=== PATIENT | female | born 1990 | race African-American/Black ===

== ENCOUNTER 2017-03-30 23:46 | Inpatient (IN) | payer OTHER ==
[2017-03-31 00:16] VITALS: BMI 32.2
[2017-03-31] MEDS ORDERED: Lactated Ringer's 1,000 ML IV SCH ×2 (01:00→02:30)
[2017-03-31 01:21] LABS: Bilirubin Negative (Negative); Blood, Urine Negative (Negative); Glucose, Urine (Dipstick) Negative (Negative); Ketone, Urine Negative (Negative); Nitrite Negative (Negative); Protein, Urine (Dipstick) Negative (Neg-Trace); Urobilinogen 0.2 mg/dL (0.2-1.0)
[2017-03-31 01:29] LABS: Amphetamine Not Detected (NotDetected); Methadone Not Detected (NotDetected); Methamphetamine Not Detected (NotDetected)
[2017-03-31] MEDS ORDERED: Acetaminophen 500 MG TAB PO PRN (02:24)
[2017-03-31] MEDS ORDERED: Ondansetron HCl/PF 4 MG/2 ML Vial IVP PRN ×3 (02:24→19:56)
[2017-03-31] MEDS ORDERED: Promethazine HCl 25 MG/ML VIAL IM PRN ×2 (02:24→19:56)
[2017-03-31] MEDS ORDERED: Dinoprostone 10 MG Suppository VAG SCH (02:30)
[2017-03-31 02:55] LABS: Hematocrit 37.3 % (36.0-47.0); Mean Platelet Volume 9.7 fL (7.4-10.4); Red Blood Cell (RBC) Count 3.78 mill/uL (4.20-5.40); White Blood Cell (WBC) Count 8.7 thou/uL (4.8-10.8)
--- NOTE | 2017-03-31 04:19 | PDOC.LDHP ---
Labor and Delivery H&P Chief complaint: contractions, abdominal pain HPI: Pt has been having eloisa canela contractions for a few weeks. Says earlier this evening around 8 or 9 started having more painful contractions and more regular. Saying she couldn't move her legs and cramping. Denies any loss of fluid like water breaking or bleeding. Feels baby move and feeling contractions , doesn't know how many minutes apart. Says she has been peeing alot and reports always feeling a little wet below. Denies any discharge, odor change or pain with urination. 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 Pt states she doesn't recall ever having herpes or being told. She states shes never had lesions. Never had itching or burning. They were suppose to test her at the sn[facility] but have not yet. Current gestational age (weeks): 38 (4 days) Due date: 04/10/17 Dating criteria: last menstrual period, first trimester ultrasound Grav: 1 Para: 0 Current complications: oligohydramnios Past Medical History: PSH: Facial Surgery PMH: None Current medications: pre- vitamins, other (acyclovir, tylenol) Previous surgical history: other (facial surgery) Allergies/Adverse Reactions: Allergies Allergy/AdvReac Type Severity Reaction Status Date / Time peanut Allergy Intermediate Swollen Verified 03/31/17 00:06 Lips Social history: tobacco use (before ), drug use (PCP early in ) - Physical Exam Vital signs reviewed and normal: yes General: NAD Heart: RRR Lungs: nonlabored breathing Abdomen: gravid Extremeties: no edema FHT: category 2, variable decelerations, variability present - Vaginal Exam cm dilated: 1 Effacement: 50% Station: -3 - OB Labs Blood type: AB RH: positive HIV: negative RPR: negative HEPSAg: negative 1 hour GCT: negative GBS: negative - Assessment L&D Assessment: medically indicated induction -Contractions 1 or 2 seen on FHT, not regular FHT baseline 150-160 with variable and moderate variability BPP 8/8, VIANNEY 3.6. Will induce due to oligohydramnios. - Plan Plan: admit to L&D, cervical ripening -: -will check U/A -Will check VP3 -Urine Drug Sreen due to previous drug use -LR bolus x2 and then maintenance rate @ 120 mls/h Will place cervedil for cervical ripening. -Pt would like epidural Due to questionable HSV status will check HSV antibodies and continue acyclovir for the time being.
[2017-03-31] MEDS: Lactated Ringer's 1,000 ML IV SCH ×3 (08:49→18:31)
[2017-03-31] MEDS: Acyclovir 400 mg Tablet PO SCH ×2 (08:50→15:42)
[2017-03-31] MEDS: metroNIDAZOLE 500 MG TAB PO SCH ×2 (08:53→22:06)
[2017-03-31] MEDS ORDERED: Fentanyl 4 mcg/Marc 0.1% Cadd 100 ML ONE (09:41)
[2017-03-31] MEDS ORDERED: Eucerin (Mineral Oil/Petrolatum,White) 30 gm Jar TOP PRN ×2 (10:29→19:56)
[2017-03-31] MEDS ORDERED: Acetaminophen 325 MG TAB PO PRN (10:29)
[2017-03-31] MEDS ORDERED: ePHEDrine/0.9% NaCl/PF SYRINGE 50 mg/10 ml SLOW IVP PRN (10:29)
[2017-03-31] MEDS ORDERED: Naloxone HCl 0.4 mg/ml Vial IVP PRN ×4 (10:29→19:56)
[2017-03-31] MEDS ORDERED: Lactated Ringer's 500 ML IV PRN (10:29)
[2017-03-31] MEDS ORDERED: Communication Order-Pharmacy FS SCH ×2 (10:30→20:00)
[2017-03-31] MEDS ORDERED: Fentanyl 4mcg/Marcaine 0.1% Cassette 100 ML EPIDURAL SCH (10:30)
[2017-03-31] MEDS ORDERED: Bupivacaine 0.25% HCL 30 ML VIAL ONE (11:11)
[2017-03-31] MEDS ORDERED: LR / Pitocin 40 units/1000 ml 1,000 ML IV PRN (11:17)
[2017-03-31] MEDS ORDERED: Ibuprofen 800 MG TAB PO PRN (11:17)
[2017-03-31] MEDS ORDERED: Lidocaine 1% (PF) 30 ML VIAL SC PRN (11:17)
[2017-03-31] MEDS ORDERED: Misoprostol 200 MCG TAB PR PRN (11:17)
--- NOTE | 2017-03-31 11:56 | ULT ---
PRELIMINARY REPORT/[facility]/EMERGENCY AFTER-HOURS PROCEDURE: EXAM: US Uterus, Limited US Biophysical Profile Without Non-Stress Testing CLINICAL HISTORY: 27 years old, female; Signs and symptoms; status abnormalities: ; Abnormal heart rate; S valdez gestation; Third trimester (28 wks 0 days until delivery); ; Patient HX: Variables on efm TECHNIQUE: Real-time ultrasound of the maternal uterus (limited) with image documentation. Real-time ultrasound of the maternal pelvis for biophysical profile evaluation with image docu mentation. COMPARISON: No relevant prior studies available. FINDINGS: Single living intrauterine gestation in vertex presentation. heart rate is 168 bpm. Amniotic f luid index (VIANNEY) is 3.7 cm. Estimated weight (EFW) is 2784g - 5%. AUA is 35w3d. GA by LMP is 39w4d. No placental abruption. No previa. Visualized anatomy is unremarkable. breathing movements: Present. Score 2/2. Gross body movements: Present. Score 2/2. tone: Present. Score 2/2. Qualitative amniotic fluid volume: Within normal limits. Score 2/2. IMPRESSION: Single viable intrauterine . Decreased VIANNEY. EFW is 2784g - 5%. Normal biophysical profile ultrasound. Score 8/8. Thank you for allowing us to participate in the care of your patient. Dictated and Authenticated by: Torres Dunlap MD 03/31/2017 3:04 AM Central Time ([place] \T\ [place]) FINAL REPORT ULTRASOUND BIOPHYSICAL PROFILE : HISTORY: Variables, possible abnormality on previous ultrasound, abnormal heart rate. COMPARISON: None. FINDINGS/IMPRESSION: Findings and impression are concordant with the preliminary report. POS: [facility]
--- NOTE | 2017-03-31 11:59 | ULT ---
PRELIMINARY REPORT/[facility]/EMERGENCY AFTER-HOURS PROCEDURE: EXAM: US Uterus, Limited US Biophysical Profile Without Non-Stress Testing CLINICAL HISTORY: 27 years old, female; Signs and symptoms; status abnormalities: ; Abnormal heart rate; Single gestation; Third trimester (28 wks 0 days until delivery); ; Patient HX: Variables on efm TECHNIQUE: Real-time ultrasound of the maternal uterus (limited) with image documentation. Real-time ultrasound of the maternal pelvis for biophysical profile evaluation with image docu mentation. COMPARISON: No relevant prior studies available. FINDINGS: Single living intrauterine gestation in vertex presentation. heart rate is 168 bpm. Amniotic f luid index (VIANNEY) is 3.7 cm. Estimated weight (EFW) is 2784g - 5%. AUA is 35w3d. GA by LMP is 39w4d. No placental abruption. No previa. Visualized anatomy is unremarkable. breathing movements: Present. Score 2/2. Gross body movements: Present. Score 2/2. tone: Present. Score 2/2. Qualitative amniotic fluid volume: Within normal limits. Score 2/2. IMPRESSION: Single viable intrauterine . Decreased VIANNEY. EFW is 2784g - 5%. Normal biophysical profile ultrasound. Score 8/8. Thank you for allowing us to participate in the care of your patient. Dictated and Authenticated by: Torres Dunlap MD 03/31/2017 3:05 AM Central Time ([place] \[place]\ [place]) FINAL REPORT ULTRASOUND OB LIMITED: HISTORY: Abnormal heart rate, single gestation, third trimester. COMPARISON: None. FINDINGS/IMPRESSION: Findings and impression are concordant with the preliminary report. The amniotic fluid volume is ab normally low and the weight is abnormally low. CODE: T POS: [facility]
[2017-03-31] MEDS: diphenhydrAMINE 50 MG/ML VIAL IVP PRN (14:26)
--- NOTE | 2017-03-31 15:35 | PDOC.LDPN ---
Labor & Delivery Progress Note - Subjective Subjective: comfortable - Objective Vital signs reviewed and normal: yes General: NAD Uterine fundus: non tender SVE: 15:[address] Ramos Dilation: 1 Effacement: 75% Station: -2 FHT: category 2, variable decelerations, variability present [place] contractions every: q5-6 min - Assessment (1) Intrauterine Code(s): Z34.90 - ENCNTR FOR SUPRVSN OF NORMAL , UNSP, UNSP TRIMESTER Current Visit: Yes Status: Acute Comment: -Induction of labor at 38.4 wks for oligohydramnios; VIANNEY 5% -s/p cervidil placement -/-2 at 15:30; no change for 12 hours -Cooks balloon placed at 16:30; can be in place no longer than 12 hours -Continue monitoring heart tones and patient's vitals (2) Oligohydramnios Code(s): O41.00X0 - OLIGOHYDRAMNIOS, UNSP TRIMESTER, NOT APPLICABLE OR UNSP Current Visit: Yes Status: Acute Qualifiers: Trimester: third trimester Comment: -Induction of labor due to oligohydramnios -VIANNEY 5% Plan: continue plan of care, other (Cook Balloon placement @ 16:30)
[2017-03-31] MEDS ORDERED: Dextrose 5%-Lactated Ringers 1,000 ML IV SCH (16:45)
--- NOTE | 2017-03-31 16:58 | PDOC.LDPN ---
Labor & Delivery Progress Note - Subjective Subjective: comfortable - Objective Vital signs reviewed and normal: yes General: NAD, resting Uterine fundus: non tender Dilation: 2 Effacement: 75% Station: -2 FHT: category 2 (minimal variability) [address] contractions every: 3 mins Other exam findings: No accelerations with scalp stimulation Resuscitative measures: maternal oxygen, maternal IV fluids, maternal position change -: I discussed the heart rate tracing with the patient. Continued minimal variability with no accels in several hours. No recurrent decels. No accelerations with scalp stimulation or with cook balloon placement. Will try D5LR but if no improvement in heart rate variability, will proceed with section.
[2017-03-31] MEDS ORDERED: CEFAZOLIN/Water 2 GM/20 ML SYRINGE ONE (17:25)
[2017-03-31] MEDS ORDERED: Bicitra 30 ML UDCUP ONE (17:25)
--- NOTE | 2017-03-31 17:29 | PDOC.LDPN ---
Labor & Delivery Progress Note - Assessment (1) Non-reassuring status Code(s): [id number] - Current Visit: Yes Status: Acute -: No improvement in heart rate tracing. Discussed with the patient, will proceed with delivery.
[2017-03-31] MEDS ORDERED: Bicitra 30 ML UDCUP PO SCH (17:30)
[2017-03-31] MEDS ORDERED: CEFAZOLIN/Water 2 GM/20 ML SYRINGE SLOW IVP SCH (17:30)
[2017-03-31] MEDS ORDERED: Fentanyl 100 MCG/2 ML VIAL ONE (17:33)
[2017-03-31] MEDS ORDERED: Oxytocin 10 UNITS/ML VIAL ONE (17:34)
[2017-03-31] MEDS ORDERED: Morphine PF 1 MG/ML SYR ONE (17:34)
[2017-03-31] MEDS ORDERED: EPINEPHrine 1 MG/ML AMP ONE (17:34)
[2017-03-31] MEDS ORDERED: Ondansetron HCl/PF 4 MG/2 ML Vial ONE (17:34)
[2017-03-31 18:18] LABS: CO2 Tension (PaCO2) 46.2 mmHg (44.0-56.0)
[2017-03-31] MEDS ORDERED: Bisacodyl 10 MG SUPP PR PRN (19:52)
[2017-03-31] MEDS ORDERED: Adacel (T-DAP) 0.5 ML VIAL IM ONE (19:52)
[2017-03-31] MEDS ORDERED: diphenhydrAMINE 25 MG CAP PO PRN (19:52)
[2017-03-31] MEDS ORDERED: HYDROcodone/Acetaminophen 5/325 mg Tablet PO PRN (19:52)
[2017-03-31] MEDS ORDERED: LR w/ Pitocin 40 units/1000 ML BAG IV SCH (19:52)
[2017-03-31] MEDS ORDERED: Naloxone HCl 0.4 mg/ml Vial IV PRN (19:56)
[2017-03-31] MEDS ORDERED: diphenhydrAMINE 50 MG/ML VIAL IVP PRN (19:56)
[2017-03-31] MEDS: Ferrous Sulfate 325 MG TAB PO SCH (21:43)
[2017-03-31] MEDS ORDERED: Ibuprofen 800 MG TAB PO SCH (22:00)
[2017-03-31] MEDS: Docusate (Surfak) 240 MG CAP PO SCH (22:07)
[2017-03-31] MEDS: Ketorolac Tromethamine 30 MG/ML VIAL IVP PRN (22:07)
--- NOTE | 2017-03-31 23:17 | OP-2 ---
RESIDENT SURGEON: Magdalene Pollard DO ASSISTING RESIDENT SURGEON: Cheri Ramos DO ATTENDING SURGEON: Teresita Gibson M.D. PROCEDURE PERFORMED: Primary section. PREOPERATIVE DIAGNOSES: 1. Term intrauterine . 2. Oligohydramnios with an VIANNEY of 53.6. 3. Intrauterine growth restriction with estimated weight 5%. 4. Persistent category 2 tracing, not responsive to interventions. POSTOPERATIVE DIAGNOSES: 1. Term intrauterine . 2. Oligohydramnios with an VIANNEY of 53.6. 3. Intrauterine growth restriction with estimated weight 5%. 4. Persistent category 2 tracing, not responsive to interventions. INDICATIONS: The patient is a 27-year-old G1, who came into Labor and Delivery in the morning of 03/31/2017 with painful contractions. The patient was found to be minimally dilated and was found to have a persisting category 2 strip with variable decels as well as minimal variability. The patient was noted to be borderline IUGR previously. Therefore, biometry was performed and the patient was found to have an estimated weight of 5% by Hadlock as well as found to have oligohydramnios with an VIANNEY of 3.6. Interventions began for induction of labor, given her diagnosis of IUGR with oligohydramnios. A Cervidil was initially placed as patient was 1 cm 4 hours later, Cervidil came out and the patient was found to be unchanged; therefore, Cook balloon was placed and the patient was monitored while Cook balloon was then placed; however , fetus continued to have a category 2 strip. The balloon was removed and scalp stim was attempted; however, this did not respond, additionally D5 was given and fetus continued to have a category 2 strip. DESCRIPTION OF PROCEDURE: After risks, benefits, and alternatives were explained to the patient, she gave informed consent. The patient was taken back to the operating room and spinal anesthesia was initiated. She was placed in the supine position with a left lateral tilt and was prepped and draped in the usual sterile fashion. A timeout was performed and procedure was initiated. The skin was cut with a scalpel and carried down to the level of the fascia which was sharply nicked. Blunt dissection was then performed throughout the subcutaneous tissue. The fascia was elevated and cut in a curvilinear fashion with Mayos. Kochers were then placed to elevate the cut fascial edges and the underlying rectus was sharply and bluntly dissected free on both the inferior and superior edges. Recti were divided digitally and retracted manually. Peritoneum was then entered bluntly and divided manually and spread manually. Bladder blade was placed. A curvilinear uterine score was done with a scalpel and carried down sharply to the level of the amniotic sac. Hysterotomy was extended manually and the vertex of the fetus was delivered partially en caul. Amniotomy was performed, and was noted to be meconium stained minimal fluid. Delivery was then completed with fundal pressure. Cord was clamped and cut and cord blood was collected. was handed to awaiting nurse , and noted to have Apgars of 9 and 9. Cord segment was also obtained for arterial blood gas. Placenta was massaged as well as sheared free from the underlying uterine bed. Uterus was then externalized and curetted with a dry lap. The uterus was closed with a running locking 0 Monocryl suture with adequate hemostasis. The uterus was then internalized and hysterotomy was reinforced with running nonlocking 0 Monocryl suture with a vertical imbricating layer with perfect hemostasis. No bleeders were noted. The abdomen was irrigated. The fascia was then closed with running nonlocking 0 PDS suture with no fascial defect noted. Subcutaneous tissue was then irrigated and small bleeders were bovied at that time. The subcutaneous tissue was reapproximated with 3 simple interrupted sutures of 3-0 plain gut and skin was closed with a running subcuticular 4-0 Monocryl suture. Dermabond was placed on top for further reinforcement. The patient tolerated the procedure well and went to the recovery room for routine care. ESTIMATED BLOOD LOSS: 700 mL. DRAINS: Rubi to gravity draining clear urine. COMPLICATIONS: None. SPECIMENS: Placenta, partially intact with 3-vessel cord, sent to pathology, given intrauterine growth restriction and oligohydramnios. Infant noted to be 6 pounds 0 ounces with Apgars of 9 and 9 at 1 and 5 minutes respectively. ATTENDING: Dr. Teresita Gibson was present throughout the entire case. [facility]
[2017-04-01] MEDS: diphenhydrAMINE 50 MG/ML VIAL IVP PRN ×2 (03:14→07:23)
[2017-04-01] MEDS: Lactated Ringer's 1,000 ML IV SCH (03:16)
[2017-04-01 05:14] LABS: Hematocrit 35.2 % (36.0-47.0); Mean Platelet Volume 8.8 fL (7.4-10.4); Red Blood Cell (RBC) Count 3.54 mill/uL (4.20-5.40); White Blood Cell (WBC) Count 10.4 thou/uL (4.8-10.8)
[2017-04-01] MEDS: Ketorolac Tromethamine 30 MG/ML VIAL IVP PRN (07:19)
--- NOTE | 2017-04-01 08:06 | PDOC.PP ---
Addendum entered and electronically signed by Magdalene Pollard DO 04/01/17 08:15: Suspected HSV- on acyclovir ppx prior to delivery. no active lesions Original Note: Post Progress Note Post Day #: 1 Subjective: Feeling well, just c/o feeling swollen in abd and itching all over. Pain controlled. Has not yet ambulated- ballard still in place. PO intake tolerated: no Flatus: no Ambulation: no Vital Signs (12 hours) Temp Pulse Resp BP Pulse Ox 04/01/17 05:09 98.2 F 88 20 130/66 04/01/17 00:05 99.0 F 89 18 134/62 03/31/17 23:10 77 20 123/62 03/31/17 22:07 99.0 F 82 22 H 122/64 03/31/17 21:30 99.0 F 82 22 H 136/89 03/31/17 20:22 97.7 F 76 18 125/72 98 Weight Weight 74.843 kg - Physical Examination General: NAD Cardiovascular: no m/r/g, RRR Respiratory: clear to auscultation bilaterally, non-labored breathing Abdominal: + bowel sounds, lochia (minimal lochia rubra), appropriately TTP Deviation from normal: mildly distended Fundus firm & at: umbilicus Extremities: negative homans (B) Skin: no rash (pending dressing removal) Perineum: n/a Neurological: no gross focal deficits Psychiatric: A&Ox3, normal affect Result Diagrams: 04/01/17 05:01 Additional Labs: Post Labs Blood Type AB POSITIVE 03/31/17 03:45 Hep Bs Antigen Non-Reactive S/CO (NonReactive) 03/31/17 01:12 (1) delivery, delivered, current hospitalization Code(s): O82 - ENCOUNTER FOR DELIVERY WITHOUT INDICATION Status: Acute Comment: POD/PPD#1- s/p PLTCS for NRFHTs nonresponsive to resuscitative measures. Induced for IUGR + Oligo. pp course/progresing as expected. Minimal lochia and pain well controlled. Await d/c ballard, inc ambulation, and begin regular diet. For pruritis, will prescribe additional hydroxyzine as benadryl unhelpful. Undecided regarding contraception. Pending case mgmt assistance for dispo regarding care during incarceration. (2) Intrauterine growth restriction affecting antepartum care of mother Code(s): O36.5990 - MATERN CARE FOR OTH OR SUSP POOR FETL GRTH, UNSP TRI, UNSP Status: Acute Qualifiers: Fetus number: single or unspecified fetus Qualified Code(s): O36.5990 - Maternal care for other known or suspected poor growth, unspecified trimester, not applicable or unspecified Comment: EFW 5%, weight- 6#0oz (3) Oligohydramnios Code(s): O41.00X0 - OLIGOHYDRAMNIOS, UNSP TRIMESTER, NOT APPLICABLE OR UNSP Status: Acute Qualifiers: Trimester: third trimester Comment: VIANNEY 3.6, confirmed low at delivery with mec (4) Non-reassuring status Code(s): [id number] - Status: Resolved Comment: apgars 9/9 - Assessment/Plan anticipate 48+ hr stay <Magdalene Pollard - Last Filed: 04/01/17 08:04> Vital Signs (12 hours) Temp Pulse Resp BP 04/01/17 08:00 98.8 F 84 18 131/81 04/01/17 05:09 98.2 F 88 20 130/66 Weight Weight 165 lb Result Diagrams: 04/01/17 05:01 Additional Labs: Post Labs Blood Type AB POSITIVE 03/31/17 03:45 Hep Bs Antigen Non-Reactive S/CO (NonReactive) 03/31/17 01:12 <Romulo Choi - Last Filed: 04/01/17 13:48> Attending Addendum - Attending Addendum I personally evaluated the patient and discussed the plan of care. I agree with the History, Examination, Assessment and Plan documented above with any addition or exceptions noted below. <Romulo Choi - Last Filed: 04/01/17 13:48>
[2017-04-01] MEDS ORDERED: hydrOXYzine 25 MG TAB PO PRN (08:14)
[2017-04-01] MEDS ORDERED: hydrOXYzine 25 MG TAB PO SCH (08:15)
[2017-04-01] MEDS: Simethicone Chewable 80 MG TAB PO PRN (09:05)
[2017-04-01] MEDS: Prenatal Vitamin 1 TAB PO SCH (09:05)
[2017-04-01] MEDS: Docusate (Surfak) 240 MG CAP PO SCH ×2 (09:05→22:00)
[2017-04-01] MEDS: metroNIDAZOLE 500 MG TAB PO SCH ×2 (09:05→22:00)
[2017-04-01] MEDS: Ferrous Sulfate 325 MG TAB PO SCH ×2 (10:19→19:29)
[2017-04-01] MEDS: HYDROcodone/Acetaminophen 5/325 mg Tablet PO PRN ×2 (12:00→17:36)
[2017-04-01] MEDS ORDERED: HYDROcodone/Acetaminophen 5/325 mg Tablet PO PRN (19:57)
[2017-04-01] MEDS: Ibuprofen 800 MG TAB PO SCH (22:00)
[2017-04-02] MEDS: HYDROcodone/Acetaminophen 5/325 mg Tablet PO PRN ×4 (04:46→21:25)
[2017-04-02] MEDS: Ibuprofen 800 MG TAB PO SCH ×3 (06:11→21:24)
[2017-04-02] MEDS: Ferrous Sulfate 325 MG TAB PO SCH ×2 (08:30→21:24)
[2017-04-02] MEDS: Prenatal Vitamin 1 TAB PO SCH (08:30)
[2017-04-02] MEDS: Docusate (Surfak) 240 MG CAP PO SCH ×2 (08:30→21:24)
[2017-04-02] MEDS: metroNIDAZOLE 500 MG TAB PO SCH ×2 (08:30→21:25)
--- NOTE | 2017-04-02 08:43 | PDOC.PP ---
Post Progress Note Post Day #: 2 Subjective: Feeling well this morning aside from lower abdominal soreness. Feels less distended/full. Ambulating, passing flatus and tolerating po. PO intake tolerated: yes Flatus: yes Ambulation: yes Vital Signs (12 hours) Temp Pulse Resp BP 04/02/17 07:54 98.4 F 67 20 134/66 04/02/17 04:49 98.6 F 63 18 126/89 04/02/17 00:11 98.3 F 70 18 118/72 Weight Weight 74.843 kg - Physical Examination General: NAD Cardiovascular: no m/r/g, RRR Respiratory: clear to auscultation bilaterally, non-labored breathing Abdominal: + bowel sounds, lochia (minimal lochia rubra), no distention, appropriately TTP Fundus firm & at: umbilicus Extremities: negative homans (B) Skin: CS incision dry & intact (incision clean w/ dermabond overtop) Neurological: no gross focal deficits Psychiatric: A&Ox3, normal affect Result Diagrams: 04/01/17 05:01 Additional Labs: Post Labs Blood Type AB POSITIVE 03/31/17 03:45 Hep Bs Antigen Non-Reactive S/CO (NonReactive) 03/31/17 01:12 (1) delivery, delivered, current hospitalization Code(s): O82 - ENCOUNTER FOR DELIVERY WITHOUT INDICATION Status: Acute Comment: @ 38.4wk POD/PPD#2 s/p PLTCS for NRFHTs nonresponsive to resuscitative measures. Complications included IUGR (EFW 5%) + Oligo (VIANNEY 3.7). pp course/progresing as expected. Minimal lochia rubra and pain controlled. Continue inc ambulation and pain control and prn hydroxyzine for itching. Undecided regarding contraception. Pending case mgmt assistance for dispo regarding care during incarceration. (2) Intrauterine growth restriction affecting antepartum care of mother Code(s): O36.5990 - MATERN CARE FOR OTH OR SUSP POOR FETL GRTH, UNSP TRI, UNSP Status: Resolved Qualifiers: Fetus number: single or unspecified fetus Qualified Code(s): O36.5990 - Maternal care for other known or suspected poor growth, unspecified trimester, not applicable or unspecified Comment: EFW 5%, weight- 6#0oz (3) Oligohydramnios Code(s): O41.00X0 - OLIGOHYDRAMNIOS, UNSP TRIMESTER, NOT APPLICABLE OR UNSP Status: Resolved Qualifiers: Trimester: third trimester Comment: VIANNEY 3.6, confirmed low at delivery with mec (4) Non-reassuring status Code(s): [id number] - Status: Resolved Comment: apgars 9/9 (5) Imprisonment and other incarceration Code(s): Z65.1 - IMPRISONMENT AND OTHER INCARCERATION Status: Acute Comment : Will be going to alf for 3 years on current charges, therefore directive placed for care of with patient's mother (maternal grandmother). Document in chart. No indication for CPS case needed.
[2017-04-02 21:10] LABS: HSV-1 IgG Type Specific 17.9 index (0.00-0.90); HSV-2 IgG Type Specific 5.85 index (0.00-0.90)
[2017-04-02] MEDS: Simethicone Chewable 80 MG TAB PO PRN (21:26)
[2017-04-03] MEDS: HYDROcodone/Acetaminophen 5/325 mg Tablet PO PRN ×3 (03:10→12:03)
[2017-04-03] MEDS: Ibuprofen 800 MG TAB PO SCH ×3 (06:00→21:26)
[2017-04-03] MEDS: Prenatal Vitamin 1 TAB PO SCH (08:05)
[2017-04-03] MEDS: Docusate (Surfak) 240 MG CAP PO SCH ×2 (08:05→21:26)
[2017-04-03] MEDS: metroNIDAZOLE 500 MG TAB PO SCH ×2 (08:05→21:26)
[2017-04-03] MEDS: Ferrous Sulfate 325 MG TAB PO SCH ×2 (08:09→21:29)
--- NOTE | 2017-04-03 10:19 | PRG ---
DATE OF SERVICE: 04/03/2017 TIME OF EVALUATION: 10:00 LOCATION: 3 [facility], patient in room 346 POSTOP DAY 3 (The patient underwent a primary section on 03/31/2017). In brief, this is a patient who underwent a primary section with Dr. Magdalene Pollard and Dr. Erick velázquez on 03/31/2017 for diagnosis of persistent category 2 tracing, nonresponsive to intervention s. I evaluated the patient on postop day 3 with no new concerns identified. SUBJECTIVE: No new issues. OBJECTIVE: On a vital sign assessment, the patient's temperature range i 98.1 to 97.8, pulse is in the 60s-70s, blood pressures 126/61-146/87. On laboratory assessment postop hematocrit value was 35 down from an original value of 37. The patient's syphilis serologies were nonreactive as was the h epatitis B surface antigen on admission. Herpes simplex virus 1 and 2 were positive on serology cheryl ting. PHYSICAL EXAMINATION: She is in no acute distress. There is no evidence of abnormal abdominal dist ention or incisional drainage. The incision was closed with a running subcuticular suture and Chili waterman was placed on top for further reinforcement. It is clean, dry, and intact. ASSESSMENT: This is a patient who is postop day 3, doing well. PLAN: 1. As the patient will not have disposition to home, we will keep the patient today for further mildred luation and pain control. 2. The patient is under custody. 3. Continue to monitor pain medications for now. 4. No evidence of postoperative febrile morbidity. 5. Routine care for now with anticipation of discharge on 04/04/2017.
--- NOTE | 2017-04-03 12:08 | PDOC.PP ---
Post Progress Note Post Day #: 3 Subjective: Pain worsened over night to a 10/10-- some pain relief with norco given, however still in pain. Using abd binder. Able to ambulate through the pain. PO intake tolerated: yes Flatus: yes Ambulation: yes Vital Signs (12 hours) Temp Pulse Resp BP 04/03/17 08:26 98.1 F 66 20 146/87 H 04/03/17 08:00 98.1 F 66 20 Weight Weight 74.843 kg - Physical Examination General: NAD Cardiovascular: no m/r/g, RRR Respiratory: clear to auscultation bilaterally, non-labored breathing Abdominal: + bowel sounds, lochia (minimal lochia rubra), no distention, appropriately TTP Fundus firm & at: umbilical Extremities: negative homans (B) Skin: CS incision dry & intact Psychiatric: A&Ox3, normal affect Result Diagrams: 04/01/17 05:01 Additional Labs: Post Labs Blood Type AB POSITIVE 03/31/17 03:45 Hep Bs Antigen Non-Reactive S/CO (NonReactive) 03/31/17 01:12 (1) delivery, delivered, current hospitalization Code(s): O82 - ENCOUNTER FOR DELIVERY WITHOUT INDICATION Status: Acute Comment: @ 38.4wk POD/PPD#3 s/p PLTCS for NRFHTs nonresponsive to resuscitative measures. Complications included IUGR (EFW 5%) + Oligo (VIANNEY 3.7). Post- course/progressing as expected, however could improve pain control. Will increase norco dose for prn use. Continue ambulation and abd support with abd binder. Plans to be discharged to senior living with infant being discharged to maternal grandmother during patient's incarceration. (2) Intrauterine growth restriction affecting antepartum care of mother Code(s): O36.5990 - MATERN CARE FOR OTH OR SUSP POOR FETL GRTH, UNSP TRI, UNSP Status: Resolved Qualifiers: Fetus number: single or unspecified fetus Qualified Code(s): O36.5990 - Maternal care for other known or suspected poor growth, unspecified trimester, not applicable or unspecified Comment: EFW 5%, weight- 6#0oz (3) Oligohydramnios Code(s): O41.00X0 - OLIGOHYDRAMNIOS, UNSP TRIMESTER, NOT APPLICABLE OR UNSP Status: Resolved Qualifiers: Trimester: third trimester Comment: VIANNEY 3.6, confirmed low at delivery with mec (4) Non-reassuring status Code(s): [id number] - Status: Resolved Comment: apgars 9/9 (5) Imprisonment and other incarceration Code(s): Z65.1 - IMPRISONMENT AND OTHER INCARCERATION Status: Acute Comment : [facility] be [facility] to [facility] 3 years on current charges, therefore directive placed for care of infant with patient's mother (maternal grandmother). Document in chart. No indication for CPS case needed. - Assessment/Plan d/c tomorrow at 96hr post- s/p section.
[2017-04-03] MEDS ORDERED: HYDROcodone/Acetaminophen 7.5/325 mg Tablet PO PRN (12:11)
[2017-04-03] MEDS: HYDROcodone/Acetaminophen 7.5/325 mg Tablet PO PRN (17:46)
[2017-04-03] MEDS: Simethicone Chewable 80 MG TAB PO PRN (21:26)
[2017-04-04] MEDS: HYDROcodone/Acetaminophen 7.5/325 mg Tablet PO PRN ×2 (04:03→11:46)
[2017-04-04] MEDS: Ibuprofen 800 MG TAB PO SCH (08:12)
[2017-04-04] MEDS: Docusate (Surfak) 240 MG CAP PO SCH (08:13)
[2017-04-04] MEDS: Prenatal Vitamin 1 TAB PO SCH (08:13)
[2017-04-04] MEDS: Simethicone Chewable 80 MG TAB PO PRN (08:13)
[2017-04-04] MEDS: metroNIDAZOLE 500 MG TAB PO SCH (08:13)
[2017-04-04] MEDS ORDERED: Milk Of Magnesia 30 ML UDCUP PO STA (08:31)
[2017-04-04 08:59] VITALS: BP 140/92; TEMP 98.9
[2017-04-04] MEDS: Ferrous Sulfate 325 MG TAB PO SCH (09:19)
== END 2017-04-04 13:40 | DRG 765 ==
LOC: L&D/OP 23:46 → EDBD 23:46 → L&D 03-31 03:31 → EEVIPCON 03-31 03:31 → L&D 03-31 17:58 → 3SW 03-31 21:24
PROVIDERS: ADMIT Obstetrics & Gynecology Obstetrics; ATTEND Obstetrics & Gynecology Obstetrics
PROC: 3E0P7VZ Introduction of Hormone into Female Reproductive, Via Natural or Artificial Opening (ICD-10-PCS; principal; 2017-03-31)
PROC: 10D00Z1 Extraction of Products of Conception, Low, Open Approach (ICD-10-PCS; 2017-03-31)
PROC: 0U7C7ZZ Dilation of Cervix, Via Natural or Artificial Opening (ICD-10-PCS; 2017-03-31)
DX: O41.03X0 Oligohydramnios, third trimester, not applicable or unspecified (principal); O98.32 Other infections with a predominantly sexual mode of transmission complicating childbirth; O36.5930 Maternal care for other known or suspected poor fetal growth, third trimester, not applicable or unspecified; Z37.0 Single live birth; O77.0 Labor and delivery complicated by meconium in amniotic fluid; Z3A.38 38 weeks gestation of pregnancy; O76 Abnormality in fetal heart rate and rhythm complicating labor and delivery; F19.11 Other psychoactive substance abuse, in remission; Z87.891 Personal history of nicotine dependence; Z72.51 High risk heterosexual behavior; B00.9 Herpesviral infection, unspecified
CPT/HCPCS: 36415; 76815; 76819; 80306; 81003; 82805; 85027; 86694; 86695; 86696; 86780; 86850; 86900; 86901; 87340; 87480; 87510; 87660; 88307; 90715; C1726; J0171; J1200; J1885; J2274; J2405; J2590; J3010; S0020

== ENCOUNTER 2017-11-29 16:41 | Emergency (ER) | payer OTHER, SELFPAY ==
--- NOTE | 2017-11-29 18:41 | RAD ---
RADIOGRAPH CHEST 2 VIEWS: 11/29/17 HISTORY: 27-year-old female with cough and chest congestion. FINDINGS: The lungs are clear. The cardiomediastinal silhouette and hilar shadows are normal. There is no ple ural effusion. The osseous structures appear normal. There is no pneumothorax. IMPRESSION: Normal. jn [] POS: [facility]
== END 2017-11-29 18:16 | disposition home or self-care (01) ==
LOC: ERS 16:41
DX: R05 Cough (principal)
CPT/HCPCS: 71046

== ENCOUNTER 2017-12-28 17:09 | Emergency (ER) | payer SELFPAY ==
--- NOTE | 2017-12-28 18:32 | RAD ---
RIGHT ELBOW: 12/28/17 Four views. HISTORY: Elbow pain with redness and swelling. No osseous abnormality identified. No evidence of joint effusion. IMPRESSION: No acute finding. POS: [facility]
== END 2017-12-28 18:49 | disposition home or self-care (01) ==
LOC: ERS 17:09
DX: L08.9 Local infection of the skin and subcutaneous tissue, unspecified (principal)

== ENCOUNTER 2018-02-01 14:40 | Emergency (ER) | payer SELFPAY ==
[~2018-02-01 14:40] MED LIST: ISOVUE-370 76%-LOCM 1 ML ONE
[2018-02-01 15:03] LABS: #Basophils 0.1 thou/uL (0.0-0.2); #Eosinphils 0.1 thou/uL (0.0-0.7); #Lymphocytes 2.8 thou/uL (1.20-3.40); #Monocytes 0.4 thou/uL (0.11-0.59); #Neutrophils 4.3 thou/uL (1.40-6.50); %Eosinophils 1.1 % (0.0-10.0); %Lymphocytes 35.9 % (21.0-51.0); %Monocytes 5.4 % (0.0-10.0); %Neutrophils 56.5 % (42.0-75.0); Hemoglobin 12.9 g/dL (12.0-16.0); Mean Corpuscular HGB CONC 34.9 g/dL (32.0-36.0); Mean Corpuscular Hemoglobin 32.2 pg (27.0-31.0); Mean Corpuscular Volume 92.3 fL (78.0-98.0); Mean Platelet Volume 8.6 fL (7.4-10.4); Platelet Count 190 thou/uL (130-400); RBC Distribution Width 11.4 % (11.5-14.5); Red Blood Cell (RBC) Count 4.01 mill/uL (4.20-5.40); White Blood Cell (WBC) Count 7.7 thou/uL (4.8-10.8)
[2018-02-01 15:16] LABS: BHCG - Serum Negative (NEGATIVE); Pregs Control Background? CLEAR/WHITE (CLR/WHITE); Pregs Control Bar Appear? YES (CONTROL BAR)
[2018-02-01 15:26] LABS: ALT (SGPT) 12 U/L (8-55); AST (SGOT) 16 U/L (5-34); Albumin 4.4 g/dL (3.5-5.0); Alkaline Phosphatase 65 U/L (40-150); Anion Gap 14 mmol/L (10-20); BUN (Urea Nitrogen) 14 mg/dL (7.0-18.7); Bilirubin, Total 0.4 mg/dL (0.2-1.2); Calc. Creatinine Clearance 0 mL/min (70-130); Calcium 9.4 mg/dL (7.8-10.44); Carbon Dioxide 24 mmol/L (22-29); Chloride 107 mmol/L (98-107); Estimated GFR-MDRD Greater than 90; Glucose 76 mg/dL (70-105); Potassium 3.6 mmol/L (3.5-5.1); Protein, Total 7.4 g/dL (6.0-8.3); Sodium 141 mmol/L (136-145)
[2018-02-01] MEDS ORDERED: Ketorolac Tromethamine 30 MG/ML VIAL ONE (15:39)
--- NOTE | 2018-02-01 16:11 | RAD ---
PORTABLE CHEST: 02/01/18 HISTORY: Chest pain and cough. Lungs are clear. Heart and mediastinum unremarkable. IMPRESSION: No acute abnormality. POS: [facility]
--- NOTE | 2018-02-01 16:16 | CT ---
CT ABDOMEN AND PELVIS WITH CONTRAST 02/01/18 Multiple axial tomograms obtained through the abdomen and pelvis with IV enhancement. INDICATIONS: Right lower quadrant pain. FINDINGS: Lung bases clear. Liver, spleen and pancreas unremarkable. Kidneys unremarkable. No hydronephrosis. Small bowel loops n ormal. The appendix is identified and appears normal with no evidence of inflammation. Images through the pelvis show unremarkable appearing uterus. There is free fluid in the pelvis. IMPRESSION: Free fluid in the cul-de-sac and both adnexal regions. Otherwise no acute process identified. POS: [facility]
[2018-02-03 00:02] LABS: Chlamydia by PCR Not Detected (NotDetected); GC by PCR Not Detected (NotDetected)
--- NOTE | 2018-02-05 13:46 | EKG ---
Test Reason : CP Blood Pressure : / mmHG Vent. Rate : 084 BPM Atrial Rate : 084 BPM P-R Int : 146 ms QRS Dur : 070 ms QT Int : 362 ms P-R-T Axes : 061 041 038 degrees QTc Int : 427 ms Normal sinus rhythm Normal ECG Confirmed by OSVALDO HERNANDEZ MD ([id number]), editorial cartoonist GENO DONNELLY ([id number]) on 02/05/2018 1:45:30 PM Referred By: Confirmed By:OSVALDO HERNANDEZ MD
== END 2018-02-01 18:40 | disposition home or self-care (01) ==
LOC: ERS 14:40
DX: R10.31 Right lower quadrant pain (principal)
CPT/HCPCS: 71045; 74177; 80053; 82550; 84703; 85025; 85379; 87480; 87491; 87510; 87591; 87660; 93005; 96374; J1885

== ENCOUNTER 2018-04-06 12:38 | Emergency (ER) | payer SELFPAY ==
[2018-04-06 13:27] LABS: Bilirubin Negative (Negative); Blood, Urine Negative (Negative); Clarity CLEAR (Clear); Glucose, Urine (Dipstick) Negative (Negative); Leukocyte Moderate (Negative); Nitrite Negative (Negative); Protein, Urine (Dipstick) Negative (Neg-Trace); Specific Gravity, Urine 1.024 (1.002-1.036); Urobilinogen 0.2 mg/dL (0.2-1.0); pH, Urine 5.5 (5.0-9.0)
[2018-04-06 13:30] LABS: Bacteria/HPF Rare-Few HPF (None Seen); Hyaline Casts/LPF 0-3 HYALINE CAST LPF (0-3 Hyaline); Pathc Cast-AUWi Flag 0.72 (0-2.49)
[2018-04-06 13:35] LABS: Pregnancy Test - Urine (BHCG) Negative (Negative); Pregu Control Background? CLEAR/WHITE (CLR/WHITE); Pregu Control Bar Appear? YES (CONTROL BAR); Specific Gravity 1.024 (1.002-1.036)
[2018-04-09 00:58] LABS: Chlamydia by PCR Not Detected (NotDetected); GC by PCR Not Detected (NotDetected)
== END 2018-04-06 14:24 | disposition home or self-care (01) ==
LOC: ERS 12:38
DX: B37.3 Candidiasis of vulva and vagina (principal); F17.210 Nicotine dependence, cigarettes, uncomplicated
CPT/HCPCS: 81003; 81015; 81025; 87480; 87491; 87510; 87591; 87660; 99284

== ENCOUNTER 2018-05-05 15:19 | Emergency (ER) | payer SELFPAY ==
[2018-05-05] MEDS ORDERED: Ondansetron ODT 4 MG TAB ONE (15:56)
[2018-05-05] MEDS ORDERED: Acetaminophen 500 MG TAB ONE (16:38)
[2018-05-05] MEDS ORDERED: Ibuprofen 200 MG TAB ONE (17:43)
[2018-05-05] MEDS ORDERED: Calcium Carbonate 500 MG ChewTAB ONE (17:43)
== END 2018-05-05 17:52 | disposition home or self-care (01) ==
LOC: ERS 15:19
DX: A08.4 Viral intestinal infection, unspecified (principal); F17.210 Nicotine dependence, cigarettes, uncomplicated
CPT/HCPCS: 87804; 96360; 96361; Q0162

== ENCOUNTER 2018-06-12 11:37 | Emergency (ER) | payer SELFPAY ==
[2018-06-12 12:18] LABS: Pregnancy Test - Urine (BHCG) Negative (Negative); Pregu Control Background? CLEAR/WHITE (CLR/WHITE); Pregu Control Bar Appear? YES (CONTROL BAR); Specific Gravity 1.026 (1.002-1.036)
== END 2018-06-12 12:33 | disposition home or self-care (01) ==
LOC: ERS 11:37
DX: R07.81 Pleurodynia (principal); F17.210 Nicotine dependence, cigarettes, uncomplicated
CPT/HCPCS: 81025; 93005; 99281

== ENCOUNTER 2018-08-31 22:44 | Emergency (ER) | payer OTHER, SELFPAY ==
[2018-08-31] MEDS ORDERED: Ketorolac Tromethamine 30 MG/ML VIAL ONE (23:59)
[2018-09-01 00:19] LABS: Pregnancy Test - Urine (BHCG) Negative (Negative); Pregu Control Background? CLEAR/WHITE (CLR/WHITE); Pregu Control Bar Appear? YES (CONTROL BAR); Specific Gravity 1.016 (1.002-1.036)
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
== END 2018-09-01 00:54 | disposition home or self-care (01) ==
LOC: ERS 22:44
DX: S09.90XA Unspecified injury of head, initial encounter (principal); M54.5 Low back pain; V89.2XXA Person injured in unspecified motor-vehicle accident, traffic, initial encounter
CPT/HCPCS: 72125; 81025; 96372; J1885

== ENCOUNTER 2018-10-07 01:00 | Emergency (ER) | payer SELFPAY, OTHER | END 2018-10-07 01:11 | disposition left against medical advice (07) | LOC: ERS 01:00 | DX: Z53.21 Procedure and treatment not carried out due to patient leaving prior to being seen by health care provider (principal) ==

== ENCOUNTER 2018-10-13 23:20 | Emergency (ER) | payer OTHER, SELFPAY ==
[2018-10-14 00:17] LABS: Pregnancy Test - Urine (BHCG) Negative (Negative); Pregu Control Background? CLEAR/WHITE (CLR/WHITE); Pregu Control Bar Appear? YES (CONTROL BAR); Specific Gravity 1.024 (1.002-1.036)
[2018-10-14 01:02] LABS: #Basophils 0.1 thou/uL (0.0-0.2); #Eosinphils 0.1 thou/uL (0.0-0.7); #Lymphocytes 3.5 thou/uL (1.20-3.40); #Monocytes 0.4 thou/uL (0.11-0.59); #Neutrophils 4.8 thou/uL (1.40-6.50); %Basophils 1.2 % (0.0-1.0); %Eosinophils 1.7 % (0.0-10.0); %Lymphocytes 38.5 % (21.0-51.0); %Monocytes 4.9 % (0.0-10.0); %Neutrophils 53.7 % (42.0-75.0); Hemoglobin 13.8 g/dL (12.0-16.0); Mean Corpuscular HGB CONC 33.2 g/dL (32.0-36.0); Mean Corpuscular Hemoglobin 32.3 pg (27.0-31.0); Mean Corpuscular Volume 97.1 fL (78.0-98.0); Mean Platelet Volume 9.3 fL (7.4-10.4); Platelet Count 196 thou/uL (130-400); RBC Distribution Width 11.6 % (11.5-14.5); Red Blood Cell (RBC) Count 4.29 mill/uL (4.20-5.40)
[2018-10-14 01:24] LABS: ALT (SGPT) 14 U/L (8-55); AST (SGOT) 13 U/L (5-34); Albumin 4.4 g/dL (3.5-5.0); Alkaline Phosphatase 55 U/L (40-150); Anion Gap 12 mmol/L (10-20); BUN (Urea Nitrogen) 15 mg/dL (7.0-18.7); Bilirubin, Total 0.2 mg/dL (0.2-1.2); Calc. Creatinine Clearance 0 mL/min (70-130); Calcium 9.7 mg/dL (7.8-10.44); Carbon Dioxide 24 mmol/L (22-29); Chloride 107 mmol/L (98-107); Estimated GFR-MDRD Greater than 90; Globulin 3.2 g/dL (2.4-3.5); Glucose 88 mg/dL (70-105); Protein, Total 7.6 g/dL (6.0-8.3); Sodium 139 mmol/L (136-145)
--- NOTE | 2018-10-14 08:00 | RAD ---
CHEST TWO VIEWS: History: Chest pain. Comparison: 11-29-17 FINDINGS: Heart size and mediastinum within normal limits. The lungs are clear of infiltrates. No bony findings . IMPRESSION: No active intrathoracic disease. POS: [facility]
[2018-10-14 22:32] LABS: Chlamydia by PCR Not Detected (NotDetected); GC by PCR Not Detected (NotDetected)
== END 2018-10-14 01:58 | disposition home or self-care (01) ==
LOC: ERS 23:20
DX: N93.9 Abnormal uterine and vaginal bleeding, unspecified (principal)
CPT/HCPCS: 36415; 71046; 80053; 81025; 85025; 85379; 87480; 87491; 87510; 87591; 87660; 93005

== ENCOUNTER 2018-11-08 23:52 | Emergency (ER) | payer SELFPAY ==
[2018-11-09] MEDS ORDERED: Ketorolac Tromethamine 60 MG/2 ML VIAL ONE (00:15)
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
== END 2018-11-09 00:56 | disposition home or self-care (01) ==
LOC: ERS 23:52
DX: S20.219A Contusion of unspecified front wall of thorax, initial encounter (principal); R09.81 Nasal congestion; W18.30XA Fall on same level, unspecified, initial encounter
CPT/HCPCS: 71046; 93005; 96372; J1885

== ENCOUNTER 2019-07-27 00:35 | Emergency (ER) | payer OTHER, SELFPAY ==
[2019-07-27 01:09] LABS: #Basophils 0.1 thou/uL (0.0-0.2); #Eosinphils 0.2 thou/uL (0.0-0.7); #Lymphocytes 3.6 thou/uL (1.20-3.40); #Monocytes 0.5 thou/uL (0.11-0.59); #Neutrophils 4.2 thou/uL (1.40-6.50); %Basophils 1.2 % (0.0-1.0); %Eosinophils 2.2 % (0.0-10.0); %Lymphocytes 41.6 % (21.0-51.0); Hemoglobin 13.6 g/dL (12.0-16.0); Mean Corpuscular HGB CONC 34.4 g/dL (32.0-36.0); Mean Corpuscular Hemoglobin 32.7 pg (27.0-31.0); Mean Platelet Volume 9.7 fL (7.4-10.4); Platelet Count 208 thou/uL (130-400); RBC Distribution Width 11.3 % (11.5-14.5); Red Blood Cell (RBC) Count 4.15 mill/uL (4.20-5.40); White Blood Cell (WBC) Count 8.6 thou/uL (4.8-10.8)
[2019-07-27 01:14] LABS: BHCG - Serum Negative (NEGATIVE); Pregs Control Background? CLEAR/WHITE (CLR/WHITE); Pregs Control Bar Appear? YES (CONTROL BAR)
[2019-07-27 01:19] LABS: ALT (SGPT) 8 U/L (8-55); AST (SGOT) 12 U/L (5-34); Albumin 4.2 g/dL (3.5-5.0); Alkaline Phosphatase 80 U/L (40-110); Anion Gap 11 mmol/L (10-20); BUN (Urea Nitrogen) 9 mg/dL (7.0-18.7); Bilirubin, Total 0.2 mg/dL (0.2-1.2); Calc. Creatinine Clearance 0 mL/min (70-130); Carbon Dioxide 24 mmol/L (22-29); Chloride 106 mmol/L (98-107); Estimated GFR-MDRD Greater than 90; Globulin 2.8 g/dL (2.4-3.5); Glucose 87 mg/dL (70-105); Potassium 3.5 mmol/L (3.5-5.1); Sodium 137 mmol/L (136-145)
[2019-07-27] MEDS ORDERED: Morphine 4 MG/ML VIAL ONE (01:20)
[2019-07-27] MEDS ORDERED: Ondansetron PF 4 MG/2 ML Vial ONE (01:20)
[2019-07-27] MEDS ORDERED: Ketorolac Tromethamine 30 MG/ML VIAL ONE (02:29)
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
[2019-07-27] MEDS ORDERED: Iopamidol-370 76% 500 ML 1 ML ONE (13:46)
== END 2019-07-27 02:26 | disposition home or self-care (01) ==
LOC: ERS 00:35
DX: M54.2 Cervicalgia (principal); V89.2XXA Person injured in unspecified motor-vehicle accident, traffic, initial encounter
CPT/HCPCS: 36415; 70450; 70486; 71045; 71260; 72125; 74177; 80053; 84703; 85025; 96361; 96374; G0390; J1885; J2270; J2405; Q9967

== ENCOUNTER 2019-08-25 13:00 | Emergency (ER) | payer SELFPAY | END 2019-08-25 13:40 | disposition home or self-care (01) | LOC: ERS 13:00 | DX: F16.10 Hallucinogen abuse, uncomplicated (principal) | CPT/HCPCS: 99282 ==

== ENCOUNTER 2022-04-12 11:05 | Emergency (ER) | payer SELFPAY ==
[2022-04-12 11:47] LABS: #Eosinphils 0.2 thou/uL (0.0-0.7); #Lymphocytes 2.2 thou/uL (1.20-3.40); #Monocytes 0.7 thou/uL (0.11-0.59); #Neutrophils 9.9 thou/uL (1.40-6.50); %Basophils 0.2 % (0.0-1.0); %Eosinophils 1.5 % (0.0-10.0); %Lymphocytes 17.2 % (21.0-51.0); %Monocytes 5.1 % (0.0-10.0); %Neutrophils 75.9 % (42.0-75.0); Mean Corpuscular HGB CONC 32.9 g/dL (32.0-36.0); Mean Corpuscular Hemoglobin 31.2 pg (27.0-31.0); Mean Corpuscular Volume 94.9 fl (78.0-98.0); Platelet Count 370 thou/uL (130-400); RBC Distribution Width 11.5 % (11.5-14.5); Red Blood Cell (RBC) Count 4.48 mill/uL (4.20-5.40)
[2022-04-12 11:55] LABS: ALT (SGPT) 20 U/L (8-55); AST (SGOT) 16 U/L (5-34); Albumin 4.4 g/dL (3.5-5.0); Alkaline Phosphatase 69 U/L (40-110); Anion Gap 12 mmol/L (10-20); BUN (Urea Nitrogen) 12 mg/dL (7.0-18.7); Bilirubin, Total 0.2 mg/dL (0.2-1.2); Calc. Creatinine Clearance 0 mL/min (70-130); Calcium 9.7 mg/dL (7.8-10.44); Carbon Dioxide 26 mmol/L (22-29); Chloride 107 mmol/L (98-107); Estimated GFR 97; Glucose 97 mg/dL (70-105); Lipase 9 U/L (8-78); Potassium 4.6 mmol/L (3.5-5.1); Protein, Total 7.4 g/dL (6.0-8.3); Sodium 140 mmol/L (136-145)
[2022-04-12] MEDS ORDERED: Ondansetron ODT 4 MG TAB ONE (12:41)
[2022-04-12 13:36] LABS: SARS-CoV-2 NAA Rapid Test Not Detected (NotDetected)
== END 2022-04-12 13:10 | disposition home or self-care (01) ==
LOC: ERS 11:05
DX: B34.9 Viral infection, unspecified (principal); R07.9 Chest pain, unspecified; F17.210 Nicotine dependence, cigarettes, uncomplicated; Z20.822 Contact with and (suspected) exposure to COVID-19
CPT/HCPCS: 36415; 71045; 80053; 83690; 84484; 85025; 93005; 94760; Q0162

== ENCOUNTER 2022-09-14 16:40 | Emergency (ER) | payer SELFPAY ==
[2022-09-14 17:28] LABS: #Basophils 0.1 thou/uL (0.0-0.2); #Eosinphils 0.1 thou/uL (0.0-0.7); #Lymphocytes 2.5 thou/uL (1.20-3.40); #Monocytes 0.6 thou/uL (0.11-0.59); #Neutrophils 6.4 thou/uL (1.40-6.50); %Basophils 0.7 % (0.0-1.0); %Eosinophils 1.1 % (0.0-10.0); %Lymphocytes 25.7 % (21.0-51.0); %Monocytes 6.2 % (0.0-10.0); %Neutrophils 66.3 % (42.0-75.0); Hemoglobin 13.9 g/dL (12.0-16.0); Mean Corpuscular HGB CONC 34.8 g/dL (32.0-36.0); Mean Corpuscular Hemoglobin 32.7 pg (27.0-31.0); Mean Corpuscular Volume 93.8 fl (78.0-98.0); Mean Platelet Volume 8.3 fL (7.4-10.4); Platelet Count 318 10x3/uL (130-400); RBC Distribution Width 11.3 % (11.5-14.5); Red Blood Cell (RBC) Count 4.26 mill/uL (4.20-5.40); White Blood Cell (WBC) Count 9.7 10x3/uL (4.8-10.8)
[2022-09-14 17:47] LABS: ALT (SGPT) 8 U/L (8-55); AST (SGOT) 12 U/L (5-34); Albumin 4.4 g/dL (3.5-5.0); Alkaline Phosphatase 70 U/L (40-110); Anion Gap 13 mmol/L (10-20); BUN (Urea Nitrogen) 12 mg/dL (7.0-18.7); Bilirubin, Total 0.2 mg/dL (0.2-1.2); Calc. Creatinine Clearance 0 mL/min (70-130); Calcium 9.5 mg/dL (7.8-10.44); Carbon Dioxide 22 mmol/L (22-29); Chloride 107 mmol/L (98-107); Estimated GFR 90; Globulin 3.4 g/dL (2.4-3.5); Glucose 87 mg/dL (70-105); Potassium 3.6 mmol/L (3.5-5.1); Protein, Total 7.8 g/dL (6.0-8.3); Sodium 138 mmol/L (136-145)
[2022-09-14 17:51] LABS: Bacteria/HPF 4+ HPF (None Seen); Bilirubin Negative (Negative); Blood, Urine Negative (Negative); Clarity Clear (Clear); Glucose, Urine (Dipstick) Normal (Negative); Ketone, Urine Negative (Negative); Leukocyte 75 Leu/uL (Negative); Nitrite Negative (Negative); Pregnancy Test - Urine (BHCG) POSITIVE (Negative); Pregu Control Background? CLEAR/WHITE (CLR/WHITE); Pregu Control Bar Appear? YES (CONTROL BAR); Protein, Urine (Dipstick) Negative (Neg-Trace); RBC/HPF 0-3 HPF (0-3); Specific Gravity 1.022 (1.002-1.036); Specific Gravity, Urine 1.022 (1.002-1.036); Urobilinogen Normal mg/dL (Less than 2); WBC/HPF 0-3 HPF (0-3)
[2022-09-14] MEDS ORDERED: Azithromycin 250 MG TAB ONE (18:51)
[2022-09-14] MEDS ORDERED: Lidocaine 1% PF 5 ML VIAL ONE (18:51)
[2022-09-14] MEDS ORDERED: cefTRIAXone (ROCEPHIN) 500 MG VIAL ONE (18:51)
[2022-09-14] MEDS ORDERED: Fluconazole 100 MG TAB PO SCH (19:00)
[2022-09-14 22:37] LABS: GC by PCR, EndoCx Swab Not Detected (NotDetected)
== END 2022-09-14 20:34 | disposition home or self-care (01) ==
LOC: ERS 16:40
DX: O98.811 Other maternal infectious and parasitic diseases complicating pregnancy, first trimester (principal); B37.31 Acute candidiasis of vulva and vagina; O23.511 Infections of cervix in pregnancy, first trimester; O99.331 Smoking (tobacco) complicating pregnancy, first trimester; F17.210 Nicotine dependence, cigarettes, uncomplicated; Z3A.01 Less than 8 weeks gestation of pregnancy
CPT/HCPCS: 36415; 76856; 80053; 81003; 81015; 81025; 84702; 85025; 87086; 87480; 87510; 87591; 87660; 96372; J0696

== ENCOUNTER 2023-08-09 13:54 | Emergency (ER) | payer OTHER, SELFPAY ==
[2023-08-09 14:20] LABS: #Eosinphils 0.1 thou/uL (0.0-0.7); #Monocytes 0.5 thou/uL (0.11-0.59); #Neutrophils 4.8 thou/uL (1.40-6.50); %Basophils 0.4 % (0.0-1.0); %Lymphocytes 31.1 % (21.0-51.0); %Monocytes 6.1 % (0.0-10.0); %Neutrophils 61.1 % (42.0-75.0); Hematocrit 41.7 % (36.0-47.0); Hemoglobin 13.4 g/dL (12.0-16.0); Mean Corpuscular HGB CONC 32.1 g/dL (32.0-36.0); Mean Corpuscular Volume 87.1 fl (78.0-98.0); Mean Platelet Volume 10.8 fL (7.4-10.4); Platelet Count 315 10x3/uL (130-400); RBC Distribution Width 13.9 % (11.5-14.5); Red Blood Cell (RBC) Count 4.79 mill/uL (4.20-5.40); White Blood Cell (WBC) Count 7.9 10x3/uL (4.8-10.8)
[2023-08-09] MEDS ORDERED: Ketorolac Tromethamine 30 MG (1 mL) VIAL ONE (14:35)
[2023-08-09] MEDS ORDERED: diphenhydrAMINE 50 MG/ML VIAL ONE (14:35)
[2023-08-09] MEDS ORDERED: methylPREDNISolone Sod Succ/PF 125 MG/2 ML VIAL ONE (14:36)
[2023-08-09] MEDS ORDERED: Meclizine HCl 25 MG TAB ONE (14:36)
[2023-08-09 14:42] LABS: Troponin I Less than 0.010 ng/mL (< 0.028)
[2023-08-09 14:44] LABS: ALT (SGPT) 12 U/L (8-55); AST (SGOT) 13 U/L (5-34); Albumin 4.2 g/dL (3.5-5.0); Alkaline Phosphatase 78 U/L (40-110); Anion Gap 13 mmol/L (10-20); BUN (Urea Nitrogen) 11 mg/dL (7.0-18.7); Bilirubin, Total 0.2 mg/dL (0.2-1.2); Calc. Creatinine Clearance 0 mL/min (70-130); Calcium 9.6 mg/dL (7.8-10.44); Carbon Dioxide 27 mmol/L (22-29); Chloride 104 mmol/L (98-107); Estimated GFR 85; Glucose 88 mg/dL (70-105); Potassium 3.5 mmol/L (3.5-5.1); Protein, Total 7.2 g/dL (6.0-8.3); Sodium 140 mmol/L (136-145)
[2023-08-09 15:03] LABS: BHCG - Serum Negative (NEGATIVE); Pregs Control Background? CLEAR/WHITE (CLR/WHITE); Pregs Control Bar Appear? YES (CONTROL BAR)
[2023-08-09 15:49] LABS: Bacteria/HPF None Seen HPF (None Seen); Bilirubin Negative (Negative); Blood, Urine Negative (Negative); CAUTI Indications for Culture Alt mental st,lethar; Clarity Clear (Clear); Glucose, Urine (Dipstick) Normal (Negative); Ketone, Urine Negative (Negative); Leukocyte Negative Leu/uL (Negative); Nitrite Negative (Negative); Protein, Urine (Dipstick) Negative (Neg-Trace); RBC/HPF 0-3 HPF (0-3); Specific Gravity, Urine 1.007 (1.002-1.036); Urobilinogen Normal mg/dL (Less than 2); WBC/HPF 0-3 HPF (0-3)
[2023-08-09 15:51] LABS: Urine Culture Reflex No No
[2023-08-09 15:52] LABS: Influenza A by NAA Not Detected (NotDetected); Influenza B by NAA Not Detected (NotDetected); SARS-CoV-2 NAA Rapid Test Not Detected (NotDetected)
== END 2023-08-09 16:29 | disposition home or self-care (01) ==
LOC: ERS 13:54
DX: R51.9 Headache, unspecified (principal); F17.210 Nicotine dependence, cigarettes, uncomplicated; Z55.6 Problems related to health literacy
CPT/HCPCS: 36415; 71045; 80053; 81001; 84484; 84703; 85025; 93005; 96374; 96375; J1200; J1885; J2930

== ENCOUNTER 2023-11-08 09:10 | Emergency (ER) | payer BC ==
[2023-11-08 10:40] LABS: Bacteria/HPF None Seen HPF (None Seen); Bilirubin Negative (Negative); Blood, Urine Negative (Negative); CAUTI Indications for Culture Fever or rigors; Clarity Clear (Clear); Glucose, Urine (Dipstick) Normal (Negative); Ketone, Urine Negative (Negative); Leukocyte Negative Leu/uL (Negative); Nitrite Negative (Negative); Protein, Urine (Dipstick) Negative (Neg-Trace); RBC/HPF 0-3 HPF (0-3); Specific Gravity, Urine 1.018 (1.002-1.036); Urobilinogen Normal mg/dL (Less than 2); WBC/HPF 0-3 HPF (0-3); pH, Urine 6.5 (5.0-9.0)
[2023-11-08 10:41] LABS: Urine Culture Reflex No No
[2023-11-08 10:47] LABS: #Basophils 0.04 10x3/uL (0.0-0.2); %Basophils 0.6 % (0.0-1.0); %Eosinophils 1.7 % (0.0-10.0); %Lymphocytes 33.3 % (21.0-51.0); %Monocytes 6.8 % (0.0-10.0); %Neutrophils 57.5 % (42.0-75.0); Hematocrit 40.6 % (36.0-47.0); Hemoglobin 13.2 g/dL (12.0-16.0); Mean Corpuscular HGB CONC 32.5 g/dL (32.0-36.0); Mean Corpuscular Hemoglobin 30.4 pg (27.0-31.0); Mean Corpuscular Volume 93.5 fL (78.0-98.0); Mean Platelet Volume 10.8 fL (7.4-10.4); Platelet Count 302 10x3/uL (130-400); RBC Distribution Width 12.6 % (11.5-14.5); Red Blood Cell (RBC) Count 4.34 mill/uL (4.20-5.40)
[2023-11-08 10:49] LABS: Influenza A by NAA Not Detected (NotDetected); Influenza B by NAA Not Detected (NotDetected); SARS-CoV-2 NAA Rapid Test Not Detected (NotDetected)
[2023-11-08 11:19] LABS: BHCG - Serum Negative (NEGATIVE); Pregs Control Background? CLEAR/WHITE (CLR/WHITE); Pregs Control Bar Appear? YES (CONTROL BAR)
[2023-11-08 11:25] LABS: ALT (SGPT) 12 U/L (8-55); AST (SGOT) 17 U/L (5-34); Albumin 3.7 g/dL (3.5-5.0); Alkaline Phosphatase 66 U/L (40-110); Anion Gap 14 mmol/L (10-20); BUN (Urea Nitrogen) 12 mg/dL (7.0-18.7); Bilirubin, Total 0.2 mg/dL (0.2-1.2); Calc. Creatinine Clearance 0 mL/min (70-130); Calcium 9.2 mg/dL (7.8-10.44); Carbon Dioxide 23 mmol/L (22-29); Chloride 107 mmol/L (98-107); Estimated GFR 102; Globulin 3.5 g/dL (2.4-3.5); Glucose 83 mg/dL (70-105); Lipase 20 U/L (8-78); Protein, Total 7.2 g/dL (6.0-8.3); Sodium 140 mmol/L (136-145)
== END 2023-11-08 12:07 | disposition home or self-care (01) ==
LOC: ERS 09:10
DX: B34.9 Viral infection, unspecified (principal)
CPT/HCPCS: 36415; 80053; 81001; 83690; 84703; 85025; 99283

== ENCOUNTER 2023-12-26 17:38 | Emergency (ER) | payer BC ==
[2023-12-26 18:44] LABS: Influenza A by NAA Not Detected (NotDetected); Influenza B by NAA Not Detected (NotDetected); SARS-CoV-2 NAA Rapid Test Not Detected (NotDetected)
[2023-12-26 19:05] LABS: #Basophils 0.05 10x3/uL (0.0-0.2); %Basophils 0.7 % (0.0-1.0); %Lymphocytes 38.9 % (21.0-51.0); %Monocytes 6.1 % (0.0-10.0); %Neutrophils 52.2 % (42.0-75.0); Hematocrit 37.3 % (36.0-47.0); Hemoglobin 12.5 g/dL (12.0-16.0); Mean Corpuscular HGB CONC 33.5 g/dL (32.0-36.0); Mean Corpuscular Hemoglobin 30.5 pg (27.0-31.0); Mean Platelet Volume 10.6 fL (7.4-10.4); Platelet Count 316 10x3/uL (130-400); RBC Distribution Width 12.6 % (11.5-14.5)
[2023-12-26 19:23] LABS: ALT (SGPT) 10 U/L (8-55); AST (SGOT) 11 U/L (5-34); Albumin 3.5 g/dL (3.5-5.0); Alkaline Phosphatase 65 U/L (40-110); Anion Gap 11 mmol/L (10-20); BUN (Urea Nitrogen) 10 mg/dL (7.0-18.7); Bilirubin, Total 0.2 mg/dL (0.2-1.2); Calc. Creatinine Clearance 0 mL/min (70-130); Calcium 9.1 mg/dL (7.8-10.44); Carbon Dioxide 24 mmol/L (22-29); Chloride 108 mmol/L (98-107); Estimated GFR 98; Globulin 2.8 g/dL (2.4-3.5); Glucose 73 mg/dL (70-105); Potassium 3.9 mmol/L (3.5-5.1); Protein, Total 6.3 g/dL (6.0-8.3); Sodium 139 mmol/L (136-145)
[2023-12-26 19:28] LABS: Troponin I Less than 0.010 ng/mL (< 0.028)
== END 2023-12-26 20:25 | disposition home or self-care (01) ==
LOC: ERS 17:38
DX: J06.9 Acute upper respiratory infection, unspecified (principal); M94.0 Chondrocostal junction syndrome [Tietze]; F17.210 Nicotine dependence, cigarettes, uncomplicated
CPT/HCPCS: 36415; 71046; 80053; 84484; 85025; 93005

== ENCOUNTER 2024-01-03 17:26 | Emergency (ER) | payer BC ==
[2024-01-03 17:56] LABS: Bilirubin Negative (Negative); Blood, Urine Negative (Negative); CAUTI Indications for Culture Dysuria,urgency,freq; Clarity Extra Turbid (Clear); Glucose, Urine (Dipstick) Normal (Negative); Ketone, Urine Negative (Negative); Leukocyte 500 Leu/uL (Negative); Nitrite Negative (Negative); Protein, Urine (Dipstick) 30 mg/dL (Neg-Trace); Specific Gravity, Urine 1.029 (1.002-1.036); Urobilinogen 3 mg/dL (Less than 2); WBC/HPF Greater than 50 HPF (0-3); pH, Urine 7.5 (5.0-9.0)
[2024-01-03 18:06] LABS: Bacteria/HPF 1+ HPF (None Seen); Yeast-Budding 1+ HPF (None Seen)
[2024-01-03 18:07] LABS: Urine Culture Reflex Yes Yes
[2024-01-03] MEDS ORDERED: cefTRIAXone (ROCEPHIN) 500 MG VIAL ONE (18:10)
[2024-01-03] MEDS ORDERED: Azithromycin 250 MG TAB ONE (18:10)
[2024-01-03] MEDS ORDERED: Lidocaine 1% MPF 2 ML VIAL ONE (18:11)
[2024-01-03 18:20] LABS: BHCG - Serum Negative (NEGATIVE); Pregs Control Background? CLEAR/WHITE (CLR/WHITE); Pregs Control Bar Appear? YES (CONTROL BAR)
[2024-01-03 18:47] LABS: HIV (1/2) Antibody/Antigen NONREACTIVE (NonReactive); HIV 1/2 INDEX 0.06 S/CO (<1.00)
[2024-01-04 00:04] LABS: Chlamydia by PCR, Vaginal Swab Not Detected (NotDetected); GC by PCR, Vaginal Swab Not Detected (NotDetected); Tric.vaginalis PCR,Vaginal Sw Not Detected (NotDetected)
[2024-01-04 11:40] LABS: Syphilis Antibody Nonreactive (Nonreactive)
== END 2024-01-03 19:40 | disposition home or self-care (01) ==
LOC: ERS 17:26
DX: N39.0 Urinary tract infection, site not specified (principal); F17.210 Nicotine dependence, cigarettes, uncomplicated
CPT/HCPCS: 36415; 81001; 84703; 86780; 87077; 87086; 87389; 87480; 87491; 87510; 87591; 87660; 87661; 96372; 99283; J0696

== ENCOUNTER 2024-03-17 23:19 | Emergency (ER) | payer BC ==
[2024-03-18 01:57] LABS: Bilirubin Negative (Negative); Blood, Urine Negative (Negative); CAUTI Indications for Culture Dysuria,urgency,freq; Calcium Oxalate Crystals 1+ HPF (None Seen); Clarity Turbid (Clear); Glucose, Urine (Dipstick) Normal (Negative); Ketone, Urine Negative (Negative); Leukocyte Negative Leu/uL (Negative); Nitrite Negative (Negative); Protein, Urine (Dipstick) Negative (Neg-Trace); Specific Gravity, Urine 1.024 (1.002-1.036); WBC/HPF 0-3 HPF (0-3); pH, Urine 6.5 (5.0-9.0)
[2024-03-18 01:59] LABS: Bacteria/HPF 1+ HPF (None Seen); Pregnancy Test - Urine (BHCG) Negative (Negative); Pregu Control Background? CLEAR/WHITE (CLR/WHITE); Pregu Control Bar Appear? YES (CONTROL BAR); RBC/HPF 0-3 HPF (0-3); Urine Culture Reflex No No
[2024-03-18 02:00] LABS: Specific Gravity 1.024 (1.002-1.036)
== END 2024-03-18 02:38 | disposition home or self-care (01) ==
LOC: ERS 23:19
DX: A08.4 Viral intestinal infection, unspecified (principal); B97.89 Other viral agents as the cause of diseases classified elsewhere; F17.210 Nicotine dependence, cigarettes, uncomplicated
CPT/HCPCS: 81001; 81025; 99283

== ENCOUNTER 2024-04-01 15:07 | Emergency (ER) | payer BC ==
[2024-04-01 16:45] LABS: #Basophils 0.04 10x3/uL (0.0-0.2); %Basophils 0.5 % (0.0-1.0); %Eosinophils 1.5 % (0.0-10.0); %Lymphocytes 31.1 % (21.0-51.0); %Monocytes 6.6 % (0.0-10.0); Hematocrit 38.4 % (36.0-47.0); Hemoglobin 12.8 g/dL (12.0-16.0); Mean Corpuscular HGB CONC 33.3 g/dL (32.0-36.0); Mean Corpuscular Hemoglobin 30.7 pg (27.0-31.0); Mean Corpuscular Volume 92.1 fL (78.0-98.0); Mean Platelet Volume 11.7 fL (7.4-10.4); Platelet Count 285 10x3/uL (130-400); RBC Distribution Width 12.4 % (11.5-14.5); Red Blood Cell (RBC) Count 4.17 mill/uL (4.20-5.40)
[2024-04-01 17:01] LABS: ALT (SGPT) 12 U/L (8-55); AST (SGOT) 13 U/L (5-34); Albumin 3.7 g/dL (3.5-5.0); Alkaline Phosphatase 61 U/L (40-110); Anion Gap 9 mmol/L (10-20); BUN (Urea Nitrogen) 11 mg/dL (7.0-18.7); Bilirubin, Total 0.2 mg/dL (0.2-1.2); Calc. Creatinine Clearance 0 mL/min (70-130); Calcium 8.9 mg/dL (7.8-10.44); Carbon Dioxide 26 mmol/L (22-29); Chloride 109 mmol/L (98-107); Estimated GFR 100; Glucose 75 mg/dL (70-105); Potassium 3.8 mmol/L (3.5-5.1); Protein, Total 6.7 g/dL (6.0-8.3); Sodium 140 mmol/L (136-145)
[2024-04-01] MEDS ORDERED: Ketorolac Tromethamine 30 MG (1 mL) VIAL ONE (17:48)
[2024-04-01 18:09] LABS: Bilirubin Negative (Negative); Blood, Urine 3+ (Negative); CAUTI Indications for Culture Dysuria,urgency,freq; Clarity Turbid (Clear); Glucose, Urine (Dipstick) Normal (Negative); Ketone, Urine Negative (Negative); Leukocyte 250 Leu/uL (Negative); Nitrite Negative (Negative); Protein, Urine (Dipstick) 50 mg/dL (Neg-Trace); RBC/HPF 21-50 HPF (0-3); Specific Gravity, Urine 1.002 (1.002-1.036); Urobilinogen Normal mg/dL (Less than 2); WBC/HPF 21-50 HPF (0-3); pH, Urine 8.5 (5.0-9.0)
[2024-04-01 18:12] LABS: Bacteria/HPF 1+ HPF (None Seen); Urine Culture Reflex Yes Yes
== END 2024-04-01 18:26 | disposition home or self-care (01) ==
LOC: ERS 15:07
DX: N93.9 Abnormal uterine and vaginal bleeding, unspecified (principal); F17.210 Nicotine dependence, cigarettes, uncomplicated
CPT/HCPCS: 36415; 76856; 80053; 81001; 84702; 85025; 86900; 86901; 87077; 87086; 93976; 96372; J1885

== ENCOUNTER 2024-04-06 23:09 | Emergency (ER) | payer BC ==
[2024-04-07 00:52] LABS: #Basophils 0.04 10x3/uL (0.0-0.2); %Basophils 0.5 % (0.0-1.0); %Eosinophils 1.9 % (0.0-10.0); %Lymphocytes 37.4 % (21.0-51.0); %Monocytes 5.2 % (0.0-10.0); %Neutrophils 54.6 % (42.0-75.0); Hematocrit 38.3 % (36.0-47.0); Hemoglobin 12.2 g/dL (12.0-16.0); Mean Corpuscular HGB CONC 31.9 g/dL (32.0-36.0); Mean Corpuscular Hemoglobin 30.3 pg (27.0-31.0); Platelet Count 309 10x3/uL (130-400); RBC Distribution Width 12.3 % (11.5-14.5); Red Blood Cell (RBC) Count 4.03 mill/uL (4.20-5.40)
== END 2024-04-07 02:37 | disposition home or self-care (01) ==
LOC: ERS 23:09
DX: N93.8 Other specified abnormal uterine and vaginal bleeding (principal); F17.210 Nicotine dependence, cigarettes, uncomplicated
CPT/HCPCS: 36415; 76856; 84702; 85025; 93976